=== PATIENT | male | born 1950 | race Caucasian/White ===

== ENCOUNTER → 2016-06-01 | Outpatient (CLI) | payer MEDICARE ==
[~2016-06-01] MED LIST: CLARITIN10 MG PO; FISH OIL 1,0001 EAC2 PO; FLONASE ALLERG9.9 ML NAS; FLOVENT DI50 MCG/ACT INH; GINKGO BILOBA60 M2 PO; HYDROCODONE BIT1 T11 PO; LIPITOR80 MG; LISINOPRIL10 M1 PO; LISINOPRIL10 MG; LUVOX PO; LUVOX50 MG; MECLIZINE HCL25 M2 PO; MULTI VITAMINS1 TAB PO; PHARMASSURE L-500 MG PO; TOPCARE OMEPRAZ20 MG; VITAMIN C1000 M5 PO; VITAMIN D1000 IU PO; VITAMIN E400 UNIT PO
[2016-06-01 14:00] LABS: BASO % 0.5 % (0.0-1.0); EOS # 0.1 10*3/uL (0.0-0.4); EOS % 1.4 % (1.0-4.0); HEMATOCRIT 44.8 % (42.0-52.0); HEMOGLOBIN 15.2 g/dl (14.0-18.0); LYMPH % 34.6 % (27.0-41.0); MEAN CELL VOLUME 96.6 fl (80.0-94.0); MEAN CORPUSCULAR HGB 32.8 pg (27.0-31.0); MEAN CORPUSCULAR HGB CONC 33.9 g/dl (33.0-37.0); MEAN PLATELET VOLUME 12.1 fl (9.6-12.3); MONO # 0.6 10*3/uL (0.1-1.0); MONO % 9.6 % (3.0-9.0); NEUT # 3.1 10*3/uL (2.3-7.9); NEUT % 53.4 % (47.0-73.0); PLATELET COUNT AUTOMATED 106 10*3/uL (130-400); RED BLOOD COUNT 4.64 10*6/uL (4.50-5.90); RED CELL DISTRI WIDTH 13.3 % (0-14.5); WHITE BLOOD COUNT 5.7 10*3/uL (4.8-10.8)
[2016-06-02 16:09] LABS: HLA CLASS 1 ANTIBODY Negative (Negative); IIb/IIIa ANTIBODY Negative (Negative); Ia/IIa ANTIBODY Positive (Negative)
[2016-06-03 00:03] LABS: VON WILLEBRAND FACTOR AG 182 % (50-200)
[2016-06-03 01:05] LABS: INTERPRETIVE NOTE Note (.)
[2016-06-04 18:03] LABS: PLT ASSOCIATED ANTI-la/lla Negative (Negative); PLT ASSOCIATED ANTI-llb/llla Positive (Negative)
== END | disposition home or self-care (01) ==
LOC: NM 05-31 11:00 → LAB 13:27
PROVIDERS: Internal Medicine
DX: D69.6 Thrombocytopenia, unspecified (principal)

== ENCOUNTER 2016-08-08 20:00 | Inpatient (IN) | payer MEDICARE ==
[~2016-08-08] VITALS: Ht 177.8 cm; Wt 131.6 kg
--- NOTE | ~2016-08-08 | O ---
[place], [place] OPERATIVE NOTE NAME: ACE YUN UNIT #: [id number] ROOM: 425 DOCTOR: ANABELA SHETTY MD BIRTHDATE: [birth year] DOS: 08/09/2016 GASTROENDOSCOPIC REPORT HISTORY OF PRESENT ILLNESS: A 66-year-old patient who has presented with chief complaint of diarrhea, suspected to have C. diff; however, C. diff was negative. PAST MEDICAL HISTORY: Hypertension, GERD, nonalcoholic steatohepatitis, peptic ulcer disease, thrombocytopenia. PAST SURGICAL HISTORY: Gastroesophageal reflux, colonoscopy, podiatric surgery. SOCIAL HISTORY: Nonsmoker, nonalcohol consumer. FAMILY HISTORY: Noncontributory. ALLERGIES: TO PENICILLIN, SULFA, HYDROCHLOROTHIAZIDE. PROCEDURE: Today's procedure part of investigation is colonoscopy and panendoscopy. PREMEDICATION: Versed and Diprivan. SCOPE: Olympus forward viewing colonoscope 10L video. REPORT: After putting the patient in the left lateral position and application of lubricant to the scope, the scope was introduced. Thereafter, under direct visualization, I advanced through the length of colon without difficulty. Base of the cecum could not be explored due to the fact there was all along the length of the colon blood present. This was degraded blood and black in color. Scope was withdrawn and the patient extubated, tolerated procedure well. IMPRESSION: No evidence of colitis in the colon, presence of blood all the way through the right side of the colon. This may signify upper GI bleed. Therefore, we are going to proceed with panendoscopy. GASTROENDOSCOPIC REPORT INDICATIONS: The patient has presented with chief complaint of GI bleed, undergoing investigation. PROCEDURE: Today's procedure part of investigation is panendoscopy plus biopsy, plus epinephrine hemostasis therapy. PREMEDICATION: Versed and Diprivan. SCOPE: Olympus forward viewing gastroscope Q10 video. REPORT: After putting the patient in the left lateral position and application [place], [place] OPERATIVE NOTE NAME: ACE YUN UNIT #: [id number] ROOM: 425 DOCTOR: ANABELA SHETTY MD BIRTHDATE: [birth year] of lubricant to the scope, the scope was introduced. Thereafter, under direct visualization, I advanced through the length of the esophagus without difficulty. No esophageal varicosities seen. Gastric pouch was entered. Esophagogastric junction at 42 cm defined. Along the greater curvature, scope was negotiated towards the pyloric ring. At approximately 70 cm from incisura, lower third of the stomach junction with the lower second part of the stomach on the greater curvature side, there is a 2 cm in diameter, very friable ulceration with blood clot on the surface. Biopsy obtained, epinephrine injection 3 mL effectively of 1:10,000 was injected in the periphery of ulcer to control bleeding. This is particularly in view of the fact that the patient has thrombocytopenia of concern. The scope was negotiated to pyloric ring, which is approximately 90 cm away from incisura. Duodenal bulb, second and third part within normal limits. The patient extubated, tolerated procedure well. IMPRESSION: Gastric ulcer, ruling out carcinoma, suspecting carcinoma, gastric ulcer bleeding, status post hemostasis therapy with epinephrine injection, history of thrombocytopenia MENDEZ. PLAN AND DISCUSSION: I did not see esophageal varicosities. This remains to be of concern until we receive our data, we are going to allow him ice cold water, ice cream and milk shake as ice substance to cause further vasoconstriction and preventing further bleeding. Clinical reassessment, awaiting pathology. ANABELA SHETTY MD CM:OPRECORD:OPERATIVE NOTE 1804 50 ANABELA SHETTY MD 08/09/161851 interface
[2016-08-08 20:26] VITALS: BP 128/86
[2016-08-08 21:02] LABS: BASO % 0.4 % (0.0-1.0); EOS % 0.2 % (1.0-4.0); HEMATOCRIT 45.5 % (42.0-52.0); HEMOGLOBIN 15.9 g/dl (14.0-18.0); LYMPH # 1.3 10*3/uL (1.3-4.4); LYMPH % 23.6 % (27.0-41.0); MEAN CORPUSCULAR HGB 32.9 pg (27.0-31.0); MEAN CORPUSCULAR HGB CONC 34.9 g/dl (33.0-37.0); MEAN PLATELET VOLUME 11.6 fl (9.6-12.3); MONO # 0.8 10*3/uL (0.1-1.0); MONO % 13.7 % (3.0-9.0); NEUT # 3.4 10*3/uL (2.3-7.9); NEUT % 61.7 % (47.0-73.0); PLATELET COUNT AUTOMATED 77 10*3/uL (130-400); RED BLOOD COUNT 4.84 10*6/uL (4.50-5.90); RED CELL DISTRI WIDTH 14.1 % (0-14.5); WHITE BLOOD COUNT 5.5 10*3/uL (4.8-10.8)
[2016-08-08 21:19] LABS: ALBUMIN 3.8 gm/dl (3.1-4.5); ALKALINE PHOSPHATASE 56 U/L (45-117); BILIRUBIN, TOTAL 0.6 mg/dl (0.2-1.0); BUN 24 mg/dl (7-24); CARBON DIOXIDE 22 mmol/L (21-32); CHLORIDE 101 mmol/L (98-107); EST GLOM FILT AFRICAN AMERICAN > 60 ml/min; GLUCOSE 99 mg/dL (65-99); POTASSIUM 3.5 mmol/L (3.5-5.1); SGOT/AST 130 IU/L (3-35); SGPT/ALT 153 U/L (12-78); SODIUM 135 mmol/L (136-145)
[2016-08-08 21:20] LABS: TROPONIN I < 0.015 ng/ml (<0.045)
[2016-08-09] VITALS (9 sets, daily range): BP systolic 88–147; BP diastolic 40–82
[2016-08-09 05:53] LABS: CKMB 2.3 ng/ml (0.5-3.6); CPK 538 U/L (39-308)
[2016-08-09 06:00] LABS: TROPONIN I < 0.015 ng/ml (<0.045)
[2016-08-09 06:14] LABS: ALBUMIN 3.2 gm/dl (3.1-4.5); ALKALINE PHOSPHATASE 48 U/L (45-117); BASO % 0.2 % (0.0-1.0); BILIRUBIN, TOTAL 0.5 mg/dl (0.2-1.0); BUN 22 mg/dl (7-24); CARBON DIOXIDE 27 mmol/L (21-32); CHLORIDE 104 mmol/L (98-107); CHOLESTEROL 163 mg/dL (<200); EOS % 0.4 % (1.0-4.0); EST GLOM FILT AFRICAN AMERICAN > 60 ml/min; FREE T4 0.86 ng/dl (0.76-1.46); GLUCOSE 86 mg/dL (65-99); HDL CHOLESTEROL 21 mg/dl (40-60); HEMATOCRIT 40.8 % (42.0-52.0); LDL CHOLESTEROL 70 mg/dL (9-159); LYMPH # 1.7 10*3/uL (1.3-4.4); LYMPH % 34.6 % (27.0-41.0); MEAN CELL VOLUME 95.6 fl (80.0-94.0); MEAN CORPUSCULAR HGB 32.8 pg (27.0-31.0); MEAN CORPUSCULAR HGB CONC 34.3 g/dl (33.0-37.0); MEAN PLATELET VOLUME 12.5 fl (9.6-12.3); MONO # 0.6 10*3/uL (0.1-1.0); NEUT # 2.5 10*3/uL (2.3-7.9); NEUT % 52.4 % (47.0-73.0); PHOSPHOROUS 2.8 mg/dL (2.5-4.9); PLATELET COUNT AUTOMATED 69 10*3/uL (130-400); POTASSIUM 3.4 mmol/L (3.5-5.1); RED BLOOD COUNT 4.27 10*6/uL (4.50-5.90); RED CELL DISTRI WIDTH 14.4 % (0-14.5); SGOT/AST 105 IU/L (3-35); SGPT/ALT 126 U/L (12-78); SODIUM 141 mmol/L (136-145); TOTAL PROTEIN 6.9 gm/dL (6.4-8.2); TRIGLYCERIDES 358 mg/dl (<150); VLDL CHOLESTEROL 72 mg/dL (6-40); WHITE BLOOD COUNT 4.8 10*3/uL (4.8-10.8)
[2016-08-09 06:30] LABS: HEMOGLOBIN A1c 5.5 % (4.8-5.6)
[2016-08-09 07:07] LABS: PROTHROMBIN TIME 10.8 SECONDS (9.0-12.4)
[2016-08-09 12:39] LABS: CKMB 2.6 ng/ml (0.5-3.6); CPK 485 U/L (39-308)
[2016-08-09 12:48] LABS: TROPONIN I < 0.015 ng/ml (<0.045)
[2016-08-09 20:01] LABS: CKMB 2.8 ng/ml (0.5-3.6); CPK 389 U/L (39-308); TROPONIN I < 0.015 ng/ml (<0.045)
[2016-08-10] VITALS: BP 143/90
[2016-08-10 06:14] LABS: HEPATITIS C VIRUS ANTIBODY <0.1 s/co (0.0-0.9)
[2016-08-10 08:00] VITALS: BP 142/87
[2016-08-10 09:12] LABS: BASO % 0.2 % (0.0-1.0); HEMATOCRIT 38.3 % (42.0-52.0); HEMOGLOBIN 12.8 g/dl (14.0-18.0); LYMPH # 1.3 10*3/uL (1.3-4.4); MEAN CELL VOLUME 98.2 fl (80.0-94.0); MEAN CORPUSCULAR HGB 32.8 pg (27.0-31.0); MEAN CORPUSCULAR HGB CONC 33.4 g/dl (33.0-37.0); MONO # 0.3 10*3/uL (0.1-1.0); MONO % 7.6 % (3.0-9.0); NEUT # 2.4 10*3/uL (2.3-7.9); NEUT % 59.7 % (47.0-73.0); PLATELET COUNT AUTOMATED 68 10*3/uL (130-400); RED CELL DISTRI WIDTH 14.5 % (0-14.5); WHITE BLOOD COUNT 4.1 10*3/uL (4.8-10.8)
[2016-08-10 09:27] LABS: ALBUMIN 3.1 gm/dl (3.1-4.5); ALKALINE PHOSPHATASE 45 U/L (45-117); BILIRUBIN, TOTAL 0.6 mg/dl (0.2-1.0); BUN 16 mg/dl (7-24); CARBON DIOXIDE 24 mmol/L (21-32); CHLORIDE 111 mmol/L (98-107); EST GLOM FILT AFRICAN AMERICAN > 60 ml/min; GLUCOSE 101 mg/dL (65-99); POTASSIUM 3.7 mmol/L (3.5-5.1); SGOT/AST 68 IU/L (3-35); SGPT/ALT 97 U/L (12-78); SODIUM 144 mmol/L (136-145); TOTAL PROTEIN 6.6 gm/dL (6.4-8.2)
[2016-08-10 12:00] VITALS: BP 136/75
[2016-08-10 16:00] VITALS: BP 121/73
[2016-08-10 20:00] VITALS: BP 134/65
[2016-08-11] VITALS: BP 118/66
[2016-08-11 08:00] VITALS: BP 130/58
[2016-08-11 12:00] VITALS: BP 139/75
[2016-08-11 15:59] LABS: HEMOGLOBIN 12.1 g/dl (14.0-18.0); MEAN CELL VOLUME 98.1 fl (80.0-94.0); MEAN CORPUSCULAR HGB CONC 33.6 g/dl (33.0-37.0); PLATELET COUNT AUTOMATED 70 10*3/uL (130-400); RED BLOOD COUNT 3.67 10*6/uL (4.50-5.90); RED CELL DISTRI WIDTH 14.4 % (0-14.5); WHITE BLOOD COUNT 4.7 10*3/uL (4.8-10.8)
[2016-08-11 16:00] VITALS: BP 135/70
[2016-08-11 16:28] LABS: EOSINOPHIL # 0.1 10*3/uL (0-0.4); EOSINOPHILS 2 % (1-4); MONOCYTE # 0.2 10*3/uL (0.1-1.0); NEUTROPHIL # 2.4 10*3/uL (2.3-7.9); NEUTROPHILS 51 % (47-73); TOTAL CELLS COUNTED 100 #CELLS
[2016-08-11 16:29] LABS: TEAR DROP CELLS FEW
[2016-08-11 16:30] LABS: PLATELET SUFFICIENCY LOW (NORMAL)
[2016-08-11 20:00] VITALS: BP 155/60
[2016-08-12] VITALS: BP 140/68; BP 152/94
[2016-08-12 05:55] LABS: BASO % 0.4 % (0.0-1.0); EOS # 0.1 10*3/uL (0.0-0.4); EOS % 1.6 % (1.0-4.0); HEMATOCRIT 36.7 % (42.0-52.0); LYMPH # 2.4 10*3/uL (1.3-4.4); LYMPH % 41.7 % (27.0-41.0); MEAN CELL VOLUME 98.7 fl (80.0-94.0); MEAN CORPUSCULAR HGB 32.3 pg (27.0-31.0); MEAN CORPUSCULAR HGB CONC 32.7 g/dl (33.0-37.0); MONO # 0.4 10*3/uL (0.1-1.0); MONO % 7.8 % (3.0-9.0); NEUT # 2.7 10*3/uL (2.3-7.9); PLATELET COUNT AUTOMATED 81 10*3/uL (130-400); RED BLOOD COUNT 3.72 10*6/uL (4.50-5.90); RED CELL DISTRI WIDTH 14.4 % (0-14.5); WHITE BLOOD COUNT 5.6 10*3/uL (4.8-10.8)
[2016-08-12 06:16] LABS: BUN 7 mg/dl (7-24); CARBON DIOXIDE 30 mmol/L (21-32); CHLORIDE 107 mmol/L (98-107); EST GLOM FILT AFRICAN AMERICAN > 60 ml/min; GLUCOSE 101 mg/dL (65-99); POTASSIUM 3.6 mmol/L (3.5-5.1); SODIUM 144 mmol/L (136-145)
[2016-08-12 07:52] VITALS: BP 143/65
[2016-08-12 12:00] VITALS: BP 132/76
[2016-08-12 16:00] VITALS: BP 148/64
[2016-08-12 20:00] VITALS: BP 141/73
[2016-08-13] VITALS: BP 136/78
[2016-08-13 06:06] LABS: BASO % 0.3 % (0.0-1.0); EOS # 0.1 10*3/uL (0.0-0.4); EOS % 2.1 % (1.0-4.0); HEMATOCRIT 38.7 % (42.0-52.0); HEMOGLOBIN 12.8 g/dl (14.0-18.0); LYMPH # 2.4 10*3/uL (1.3-4.4); MEAN CELL VOLUME 98.5 fl (80.0-94.0); MEAN CORPUSCULAR HGB 32.6 pg (27.0-31.0); MEAN CORPUSCULAR HGB CONC 33.1 g/dl (33.0-37.0); MEAN PLATELET VOLUME 11.9 fl (9.6-12.3); MONO # 0.5 10*3/uL (0.1-1.0); MONO % 7.8 % (3.0-9.0); NEUT # 3.2 10*3/uL (2.3-7.9); NEUT % 51.2 % (47.0-73.0); PLATELET COUNT AUTOMATED 86 10*3/uL (130-400); RED BLOOD COUNT 3.93 10*6/uL (4.50-5.90); RED CELL DISTRI WIDTH 14.2 % (0-14.5); WHITE BLOOD COUNT 6.3 10*3/uL (4.8-10.8)
[2016-08-13 08:00] VITALS: BP 147/74
[2016-08-13] MEDS ORDERED: ZOCOR10 MG PO (11:00)
[2016-08-13] MEDS ORDERED: PROTONIX40 MG PO (11:01)
[2016-08-13] MEDS ORDERED: D-1000 185 MG-11 TAB PO (11:01)
[2016-08-13 12:00] VITALS: BP 121/61
== END 2016-08-13 13:39 | disposition home or self-care (01) | DRG 871 ==
LOC: ED 20:00 → 4E 23:32 → EDHOLD 23:32 → 4E 08-09 00:06
PROVIDERS: Hospitalist; Internal Medicine; Internal Medicine Hospice and Palliative Medicine; Registered Nurse; Student in an Organized Health Care Education/Training Program
PROC: 0DB68ZX Excision of Stomach, Via Natural or Artificial Opening Endoscopic, Diagnostic (ICD-10-PCS; principal; 2016-08-09)
PROC: 0DJD8ZZ Inspection of Lower Intestinal Tract, Via Natural or Artificial Opening Endoscopic (ICD-10-PCS; principal; 2016-08-09)
PROC: 5A09357 Assistance with Respiratory Ventilation, Less than 24 Consecutive Hours, Continuous Positive Airway Pressure (ICD-10-PCS; principal; 2016-08-09)
PROC: 3E0G8GC Introduction of Other Therapeutic Substance into Upper GI, Via Natural or Artificial Opening Endoscopic (ICD-10-PCS; principal; 2016-08-09)
DX: A41.9 Sepsis, unspecified organism (principal); K25.4 Chronic or unspecified gastric ulcer with hemorrhage; D69.6 Thrombocytopenia, unspecified; E83.51 Hypocalcemia; K75.81 Nonalcoholic steatohepatitis (NASH); K52.9 Noninfective gastroenteritis and colitis, unspecified; K80.20 Calculus of gallbladder without cholecystitis without obstruction; K21.9 Gastro-esophageal reflux disease without esophagitis; I10 Essential (primary) hypertension; J45.909 Unspecified asthma, uncomplicated; F42.9 Obsessive-compulsive disorder, unspecified; E55.9 Vitamin D deficiency, unspecified; Z82.0 Family history of epilepsy and other diseases of the nervous system; Z82.49 Family history of ischemic heart disease and other diseases of the circulatory system; Z88.0 Allergy status to penicillin; Z88.2 Allergy status to sulfonamides; Z88.8 Allergy status to other drugs, medicaments and biological substances; Z79.899 Other long term (current) drug therapy

== ENCOUNTER → 2016-10-13 | Day surgery (SDC) | payer MEDICARE ==
[~2016-10-13] VITALS: Ht 177.8 cm; Wt 133.8 kg
[~2016-10-13] MED LIST changes: +D-1000 185 MG-11 TAB PO; +PROTONIX40 MG PO; +ZOCOR10 MG PO
--- NOTE | ~2016-10-13 | O ---
[place], [place] OPERATIVE NOTE NAME: ACE YUN UNIT #: [id number] ROOM: DOCTOR: ANABELA SHETTY MD BIRTHDATE: [birth year] DOS: 10/13/2016 GASTROENDOSCOPIC REPORT HISTORY OF PRESENT ILLNESS: The patient is 66 years old who has presented with chief complaint of history of aggressive ulceration of the gastric pouch. We were suspecting carcinoma. A photographic series on 08/09/2016 has been obtained pathology, although declared to be noncarcinomatous tissue. We were clinically concerned. Therefore, followup endoscopy has been organized. ALLERGIES: SULFA, PERCOCET. FAMILY HISTORY: Noncontributory. PAST MEDICAL HISTORY: Obesity, hypercholesterolemia, hypertension. SOCIAL HISTORY: Nonsmoker, nonalcohol consumer. PAST SURGICAL HISTORY: Minor operations. PROCEDURE: Today's procedure and part of investigation is panendoscopy plus biopsy. PREMEDICATION: Versed and Diprivan. SCOPE: Olympus forward-viewing gastroscope Q10 video. REPORT: After putting the patient in the left lateral position and after application of lubricant to the scope, the scope was introduced; thereafter, under direct visualization advanced through the length of the esophagus without difficulty. The esophagus and cervicothoracic distally carefully examined. Gastric pouch was entered and gastritis was seen. No evidence of previously explained ulceration, which was a very aggressive ulcer, was seen. Duodenal bulb, second and third part within normal limits. The patient was gradually extubated and tolerated the procedure well. IMPRESSION: Healed aggressive ulcer of the gastric pouch, status post antral biopsy for Helicobacter pylori. PLAN AND DISCUSSION: Continuation of omeprazole 20 mg daily at least or Protonix 40 mg one every day as alternative. I have reviewed photographic series of 08/09/2016, which is available in the computer records, and we are pleased that the gastric ulcers are entirely healed. Thank you very much indeed for your kind referral. For routine followup with you in office, p.r.n. visit with us in GI Clinic. [place], [place] OPERATIVE NOTE NAME: ACE YUN UNIT #: [id number] ROOM: DOCTOR: ANABELA SHETTY MD BIRTHDATE: [birth year] ANABELA SHETTY MD CM:GAGAN:OPERATIVE NOTE 1143 [id number] ANABELA SHETTY MD 10/13/16 1344 interface
[2016-10-13 11:19] VITALS: BP 144/57
[2016-10-13 11:35] VITALS: BP 118/64
[2016-10-13 11:50] VITALS: BP 125/69
[2016-10-13 12:05] VITALS: BP 123/63
== END | disposition home or self-care (01) ==
LOC: SDC 10-09 12:30
DX: K29.50 Unspecified chronic gastritis without bleeding (principal); E66.9 Obesity, unspecified; E78.00 Pure hypercholesterolemia, unspecified; I10 Essential (primary) hypertension; K21.9 Gastro-esophageal reflux disease without esophagitis; H81.09 Meniere's disease, unspecified ear; F42.9 Obsessive-compulsive disorder, unspecified; Z98.890 Other specified postprocedural states; Z83.3 Family history of diabetes mellitus; Z82.49 Family history of ischemic heart disease and other diseases of the circulatory system

== ENCOUNTER → 2017-05-11 | Outpatient (CLI) | payer MEDICARE ==
[2017-05-11 13:26] LABS: BASO % 0.5 % (0.0-1.0); EOS # 0.1 10*3/uL (0.0-0.4); EOS % 1.6 % (1.0-4.0); HEMATOCRIT 49.2 % (42.0-52.0); HEMOGLOBIN 16.6 g/dl (14.0-18.0); MEAN CELL VOLUME 97.8 fl (80.0-94.0); MEAN CORPUSCULAR HGB CONC 33.7 g/dl (33.0-37.0); MEAN PLATELET VOLUME 11.7 fl (9.6-12.3); MONO # 0.5 10*3/uL (0.1-1.0); MONO % 9.2 % (3.0-9.0); NEUT # 3.1 10*3/uL (2.3-7.9); NEUT % 53.5 % (47.0-73.0); PLATELET COUNT AUTOMATED 107 10*3/uL (130-400); RED BLOOD COUNT 5.03 10*6/uL (4.50-5.90); RED CELL DISTRI WIDTH 13.4 % (0-14.5); WHITE BLOOD COUNT 5.8 10*3/uL (4.8-10.8)
[2017-05-11 13:53] LABS: ALBUMIN 3.7 gm/dl (3.1-4.5); ALKALINE PHOSPHATASE 68 U/L (45-117); BUN 13 mg/dl (7-24); CHLORIDE 101 mmol/L (98-107); CHOLESTEROL 220 mg/dL (<200); CREATININE 1.15 mg/dL (0.70-1.30); HDL CHOLESTEROL 40 mg/dl (40-60); POTASSIUM 4.4 mmol/L (3.5-5.1); SGOT/AST 44 IU/L (3-35); SGPT/ALT 76 U/L (12-78); SODIUM 139 mmol/L (136-145); TOTAL PROTEIN 8.1 gm/dL (6.4-8.2); TRIGLYCERIDES 549 mg/dl (<150)
== END ==
LOC: LAB 13:02
PROVIDERS: Internal Medicine
DX: I10 Essential (primary) hypertension (principal); E78.2 Mixed hyperlipidemia; E55.9 Vitamin D deficiency, unspecified

== ENCOUNTER 2017-11-03 14:25 | Emergency (ER) | payer MEDICARE ==
[~2017-11-03] VITALS: Ht 182.8 cm; Wt 117.9 kg
== END 2017-11-03 17:07 | disposition home or self-care (01) ==
LOC: ED 14:25
DX: S20.212A Contusion of left front wall of thorax, initial encounter (principal); Z88.0 Allergy status to penicillin; Z88.2 Allergy status to sulfonamides; Z88.8 Allergy status to other drugs, medicaments and biological substances; Z79.899 Other long term (current) drug therapy; W17.89XA Other fall from one level to another, initial encounter; Y93.89 Activity, other specified; Y92.89 Other specified places as the place of occurrence of the external cause; Y99.8 Other external cause status

== ENCOUNTER → 2017-12-05 | Outpatient (CLI) | payer MEDICARE ==
[2017-12-05 10:07] LABS: BASO % 0.8 % (0.0-1.0); EOS # 0.1 10*3/uL (0.0-0.4); EOS % 1.9 % (1.0-4.0); HEMATOCRIT 44.3 % (42.0-52.0); HEMOGLOBIN 14.6 g/dl (14.0-18.0); LYMPH # 1.6 10*3/uL (1.3-4.4); LYMPH % 34.5 % (27.0-41.0); MEAN CELL VOLUME 100.9 fl (80.0-94.0); MEAN CORPUSCULAR HGB 33.3 pg (27.0-31.0); MEAN PLATELET VOLUME 12.6 fl (9.6-12.3); MONO # 0.5 10*3/uL (0.1-1.0); MONO % 10.9 % (3.0-9.0); NEUT # 2.5 10*3/uL (2.3-7.9); NEUT % 51.7 % (47.0-73.0); PLATELET COUNT AUTOMATED 90 10*3/uL (130-400); RED BLOOD COUNT 4.39 10*6/uL (4.50-5.90); RED CELL DISTRI WIDTH 13.6 % (0-14.5); WHITE BLOOD COUNT 4.8 10*3/uL (4.8-10.8)
[2017-12-05 10:33] LABS: ALBUMIN 3.8 gm/dl (3.1-4.5); ALKALINE PHOSPHATASE 63 U/L (45-117); BUN 26 mg/dl (7-24); CHLORIDE 107 mmol/L (98-107); CHOLESTEROL 198 mg/dL (<200); CREATININE 1.34 mg/dL (0.70-1.30); HDL CHOLESTEROL 30 mg/dl (40-60); LDL CHOLESTEROL 94 mg/dL (9-159); POTASSIUM 4.3 mmol/L (3.5-5.1); SGOT/AST 25 IU/L (3-35); SGPT/ALT 36 U/L (12-78); SODIUM 142 mmol/L (136-145); TOTAL PROTEIN 7.5 gm/dL (6.4-8.2); TRIGLYCERIDES 372 mg/dl (<150); VLDL CHOLESTEROL 74 mg/dL (6-40)
== END | disposition home or self-care (01) ==
LOC: LAB 09:20
PROVIDERS: Internal Medicine
DX: I10 Essential (primary) hypertension (principal); E78.2 Mixed hyperlipidemia; R30.0 Dysuria; E55.9 Vitamin D deficiency, unspecified

== ENCOUNTER 2018-05-30 12:06 | Emergency (ER) | payer MEDICARE ==
[~2018-05-30] VITALS: Ht 180.3 cm; Wt 113.4 kg
[2018-05-30 12:47] LABS: BASO % 0.1 % (0.0-1.0); HEMATOCRIT 43.3 % (42.0-52.0); HEMOGLOBIN 14.9 g/dl (14.0-18.0); LYMPH # 1.1 10*3/uL (1.3-4.4); MEAN CELL VOLUME 96.2 fl (80.0-94.0); MEAN CORPUSCULAR HGB 33.1 pg (27.0-31.0); MEAN CORPUSCULAR HGB CONC 34.4 g/dl (33.0-37.0); MEAN PLATELET VOLUME 11.9 fl (9.6-12.3); MONO # 0.8 10*3/uL (0.1-1.0); NEUT # 5.8 10*3/uL (2.3-7.9); NEUT % 75.5 % (47.0-73.0); PLATELET COUNT AUTOMATED 62 10*3/uL (130-400); RED CELL DISTRI WIDTH 14.1 % (0-14.5); WHITE BLOOD COUNT 7.7 10*3/uL (4.8-10.8)
[2018-05-30 13:03] LABS: ALBUMIN 3.7 gm/dl (3.1-4.5); ALKALINE PHOSPHATASE 60 U/L (45-117); BUN 24 mg/dl (7-24); CHLORIDE 103 mmol/L (98-107); CREATININE 1.42 mg/dL (0.70-1.30); PHOSPHOROUS 4.3 mg/dL (2.5-4.9); POTASSIUM 4.1 mmol/L (3.5-5.1); SGOT/AST 26 IU/L (3-35); SGPT/ALT 30 U/L (12-78); SODIUM 137 mmol/L (136-145); TOTAL PROTEIN 7.7 gm/dL (6.4-8.2)
[2018-05-30] MEDS ORDERED: IMODIUM A-D2 M2 PO (14:24)
== END 2018-05-30 14:29 | disposition home or self-care (01) ==
LOC: ED 12:06
PROVIDERS: Family Medicine
DX: E86.0 Dehydration (principal); N17.9 Acute kidney failure, unspecified; R19.7 Diarrhea, unspecified; R10.9 Unspecified abdominal pain; R50.9 Fever, unspecified; R53.83 Other fatigue; K21.9 Gastro-esophageal reflux disease without esophagitis; I10 Essential (primary) hypertension; Z88.0 Allergy status to penicillin; Z88.2 Allergy status to sulfonamides; Z88.8 Allergy status to other drugs, medicaments and biological substances; Z79.899 Other long term (current) drug therapy

== ENCOUNTER → 2018-11-21 | Outpatient (CLI) | payer MEDICARE ==
[~2018-11-21] MED LIST changes: +IMODIUM A-D2 M2 PO
[2018-11-21 09:28] LABS: HEMOGLOBIN 13.9 g/dl (14.0-18.0); MEAN CELL VOLUME 101.2 fl (80.0-94.0); MEAN CORPUSCULAR HGB 32.7 pg (27.0-31.0); MEAN CORPUSCULAR HGB CONC 32.3 g/dl (33.0-37.0); MEAN PLATELET VOLUME 12.5 fl (9.6-12.3); RED BLOOD COUNT 4.25 10*6/uL (4.50-5.90); RED CELL DISTRI WIDTH 13.7 % (0-14.5); WHITE BLOOD COUNT 5.1 10*3/uL (4.8-10.8)
[2018-11-21 09:42] LABS: ALBUMIN 3.7 gm/dl (3.1-4.5); BUN 25 mg/dl (7-24); CHLORIDE 109 mmol/L (98-107); CHOLESTEROL 189 mg/dL (<200); CREATININE 1.35 mg/dL (0.70-1.30); HDL CHOLESTEROL 37 mg/dl (40-60); LDL CHOLESTEROL 119 mg/dL (9-159); POTASSIUM 4.6 mmol/L (3.5-5.1); SGOT/AST 14 IU/L (3-35); SGPT/ALT 21 U/L (12-78); SODIUM 144 mmol/L (136-145); TOTAL PROTEIN 7.2 gm/dL (6.4-8.2); TRIGLYCERIDES 165 mg/dl (<150); VLDL CHOLESTEROL 33 mg/dL (6-40)
[2018-11-21 09:52] LABS: ALKALINE PHOSPHATASE 48 U/L (45-117)
== END | disposition home or self-care (01) ==
LOC: LAB 08:42
PROVIDERS: Physician Assistant
DX: Z12.5 Encounter for screening for malignant neoplasm of prostate (principal); E78.2 Mixed hyperlipidemia; K21.0 Gastro-esophageal reflux disease with esophagitis; J30.1 Allergic rhinitis due to pollen; G57.92 Unspecified mononeuropathy of left lower limb; I10 Essential (primary) hypertension; F42.2 Mixed obsessional thoughts and acts

== ENCOUNTER → 2019-05-02 | Outpatient (CLI) | payer MEDICARE ==
[~2019-05-02] MED LIST changes: +B-100 COMPLEX100 MG PO; +CRANBERRY/D-MANNOSE PO; +CRANBERRY500 M3 PO; +CVS LUTEIN 401 EACH PO; +FLOMAX0.4 MG PO; +FLUVOXAMINE50 MG PO; +MAGNESIUM400 M1 PO; +NEURONTIN300 MG PO; +OMEGA-3 FLAXS1000 MG PO; +PRILOSEC20 M1 PO; +RANITIDINE HYD PO; +TRICOR48 MG PO; +VIT E PO; +ZOCOR20 MG PO
--- NOTE | 2019-05-02 10:30 | NUR ---
INFORMED CONENT OBTAINED FOR LEXISCAN NUCLEAR STRESS TESTING WITH DR. FREEMAN. RESTING EKG NSR WITH A RESTING HR OF 73 WITH BP OF 118/78. HAS T WAVE INVERSIONS IN LEADS II,III,AVF AND V4-V6. LUNGS WITH DIMINISHED BS WITH SPO2 OF 96% ON ROOM AIR. PT COMPLETED A 1:00 LEXISCAN PROTOCOL RECEIVING LEXISCAN 0.4 MG IV OVER 10 SECONDS. HAD NO CHEST PAIN OR ANY EKG CHANGES. HAD C/O "ODD FEELING" THAT RESOLVED IN RECOVERY. HAD A PEAK HR OF 88 WITH BP OF 130/80. LAST RECOVERY HR OF 85 WITH BP OF 110/78. AWAITING SCANNING IN STABLE CONDITION.
== END | disposition home or self-care (01) ==
LOC: CARD 00:29
DX: I10 Essential (primary) hypertension (principal); E78.5 Hyperlipidemia, unspecified; G47.33 Obstructive sleep apnea (adult) (pediatric); R06.02 Shortness of breath; R53.81 Other malaise; R94.31 Abnormal electrocardiogram [ECG] [EKG]

== ENCOUNTER → 2020-01-09 | Outpatient (CLI) | payer MEDICARE ==
[2020-01-09 09:40] LABS: HEMATOCRIT 42.8 % (42.0-52.0); MEAN CELL VOLUME 97.7 fl (80.0-94.0); MEAN CORPUSCULAR HGB 32.6 pg (27.0-31.0); MEAN CORPUSCULAR HGB CONC 33.4 g/dl (33.0-37.0); MEAN PLATELET VOLUME 11.4 fl (9.6-12.3); RED BLOOD COUNT 4.38 10*6/uL (4.50-5.90); RED CELL DISTRI WIDTH 13.8 % (0-14.5)
[2020-01-09 10:15] LABS: ALBUMIN 3.8 gm/dl (3.1-4.5); CREATININE 1.44 mg/dL (0.70-1.30); POTASSIUM 4.3 mmol/L (3.5-5.1); TOTAL PROTEIN 7.4 gm/dL (6.4-8.2)
== END | disposition home or self-care (01) ==
LOC: LAB 09:22
PROVIDERS: ATTEND Physician Assistant
DX: Z12.5 Encounter for screening for malignant neoplasm of prostate (principal); I10 Essential (primary) hypertension; E78.2 Mixed hyperlipidemia; K21.0 Gastro-esophageal reflux disease with esophagitis; J45.40 Moderate persistent asthma, uncomplicated; C41.1 Malignant neoplasm of mandible

== ENCOUNTER 2020-03-31 14:43 | Emergency (ER) | payer MEDICARE ==
[~2020-03-31] VITALS: Ht 180.3 cm; Wt 129.3 kg
[2020-03-31 16:43] LABS: BASO % 0.6 % (0.0-1.0); EOS # 0.1 10*3/uL (0.0-0.4); HEMATOCRIT 45.1 % (42.0-52.0); LYMPH # 1.5 10*3/uL (1.3-4.4); MEAN CORPUSCULAR HGB 32.6 pg (27.0-31.0); MEAN CORPUSCULAR HGB CONC 33.3 g/dl (33.0-37.0); MEAN PLATELET VOLUME 10.9 fl (9.6-12.3); MONO # 0.4 10*3/uL (0.1-1.0); MONO % 8.6 % (3.0-9.0); NEUT # 2.9 10*3/uL (2.3-7.9); NEUT % 58.6 % (47.0-73.0); PLATELET COUNT AUTOMATED 80 10*3/uL (130-400); RED CELL DISTRI WIDTH 13.6 % (0-14.5); WHITE BLOOD COUNT 4.9 10*3/uL (4.8-10.8)
[2020-03-31 17:00] LABS: CREATININE 1.5 mg/dL (0.70-1.30); POTASSIUM 4.4 mmol/L (3.5-5.1); TOTAL PROTEIN 7.9 gm/dL (6.4-8.2)
[2020-03-31] MEDS ORDERED: ZITHROMAX250 MG PO (19:57)
== END 2020-03-31 20:10 | disposition home or self-care (01) ==
LOC: ED 14:43
PROVIDERS: Emergency Medicine
DX: J40 Bronchitis, not specified as acute or chronic (principal); Z20.828 Contact with and (suspected) exposure to other viral communicable diseases

== ENCOUNTER → 2020-08-16 | Outpatient (CLI) | payer MEDICARE ==
[~2020-08-16] MED LIST changes: +ZITHROMAX250 MG PO
[2020-08-16 08:54] LABS: BUN 16 mg/dl (7-24); CHLORIDE 112 mmol/L (98-107); CREATININE 1.34 mg/dL (0.70-1.30); POTASSIUM 4.2 mmol/L (3.5-5.1); SODIUM 144 mmol/L (136-145)
== END | disposition home or self-care (01) ==
LOC: LAB 08:00
PROVIDERS: ATTEND Urology
DX: C64.9 Malignant neoplasm of unspecified kidney, except renal pelvis (principal)